=== PATIENT | female | born 1960 | race Caucasian/White ===

== ENCOUNTER 2017-06-21 11:02 | Emergency (ER) | payer OTHER ==
[~2017-06-21] VITALS: Ht 170.2 cm; Wt 108.0 kg
[2017-06-21 11:28] VITALS: TEMP 36.5; Ht 170.2 cm; Wt 108.0 kg
[2017-06-21] MEDS ORDERED: LEVO50TA6 PO (11:46)
[2017-06-21] MEDS ORDERED: METO50TA16 PO (11:46)
[2017-06-21] MEDS ORDERED: RIVA1TAB4 PO (11:46)
[2017-06-21] MEDS ORDERED: ATOR-24 PO (11:46)
[2017-06-21] MEDS ORDERED: ONDANSETRON INJ 2 MG/ML 2 ML VIAL IV STA (12:02)
[2017-06-21] MEDS ORDERED: SODIUM CHLORIDE 0.9% 1000ML 1,000 ML IV STA (12:02)
--- NOTE | 2017-06-21 12:06 | EMERGENCY ROOM VISIT NOTE ---
History Report prepared by Jeny: Lakia Stanford Under the Supervision of: Dr. Carlos Han D.O. First contact with patient: 11:52 Chief Complaint: DIZZY Stated Complaint: LIGHTHEADED/DIZZINESS Nursing Triage Summary: Patient states yesterday "I just did not feel right". Patient states yesterday she had a headache and dizziness. "I felt like my blood pressure was up". These symptoms worsened today. Patient presented to [facility] where BP was elevated and EMS was called. History of Present Illness The patient is a 57 year old female who presents to the Emergency Room with complaints of not feeling good for the past 48 hours. She has trouble explaining how she feels been noted she just does not feel right. She denies any dizziness which includes the room spinning or her feeling as though she is spinning. When she refers to dizziness she is expressing that she feels like she is going to pass out when she changes positions. She notes she has a mild left-sided head pressure which has been fairly constant. She has also felt lightheaded with changing positions mainly laying to standing or sitting to standing. Patient does have nausea associated with this. Her symptoms have worsened slightly today. She was seen at [facility] who is referred in via EMS for hypertension. She does have past medical history of hypertension, factor V Leiden and hypothyroid. She takes a Xa inhibitor and missed today's dose. No weakness or numbness in arms or legs. Denies any chest pain or shortness of breath. No change in vision. No fevers of of 100.4. Source of History: patient Onset: 48 hours ago Position: other (global) Quality: other (not feeling good) Timing: other (persistent) Associated Symptoms: + headache, + nausea Note: Pt reports like feeling out when changing positions. Pt denies room spinning. Review of Systems See HPI for pertinent positives & negatives. A total of 10 systems reviewed and were otherwise negative. Past Medical & Surgical Medical Problems: (1) Factor V Leiden (2) Hypertension (3) Hypothyroid Family History No pertinent family history stated. Social History Smoking Status: Never Smoker Marital Status: Occupation Status: employed Current/Historical Medications Scheduled Atorvastatin (Lipitor), 40 MG PO DAILY Levothyroxine Sodium (Levothyroxine Sodium), 2 TAB PO DAILY Metoprolol Tartrate (Lopressor) (Lopressor), 50 MG PO DAILY Rivaroxaban (Xarelto), 20 MG PO HS Allergies Coded Allergies: Penicillins (Unverified Allergy, Severe, HIVES, 06/21/17) Diphenhydramine (Verified Allergy, Unknown, reports "hives with IV Benadryl", 06/21/17) Levothyroxine (Verified Allergy, Unknown, reports "high BP with red and yellow dye" in Synthroid, 06/21/17) states she can only take the white 50mcg tablets Physical Exam Vital Signs Date Time Temp Pulse Resp B/P (MAP) Pulse Ox O2 Delivery O2 Flow Rate FiO2 06/21/17 13:26 77 18 130/76 97 Room Air 06/21/17 13:19 74 06/21/17 12:26 84 16 141/89 95 06/21/17 12:16 96 Room Air 06/21/17 12:16 96 Room Air 06/21/17 11:34 73 154/104 80 163/95 83 156/92 06/21/17 11:28 36.5 69 14 178/100 96 Room Air 06/21/17 11:15 67 Physical Exam GENERAL: Sitting up in bed, alert, well appearing, well nourished, no distress, non-toxic EYE EXAM: normal conjunctiva. PERRL and EOM's intact. OROPHARYNX: no exudate, no erythema, lips, buccal mucosa, and tongue normal and mucous membranes are moist NECK: supple, no nuchal rigidity, no adenopathy, non-tender LUNGS: Clear to auscultation. Normal chest wall mechanics HEART: no murmurs, S1 normal and S2 normal ABDOMEN: abdomen soft, non-tender, normo-active bowel sounds, no masses, no rebound or guarding. BACK: Back is symmetrical on inspection and there is no deformity, no midline tenderness, no CVA tenderness. SKIN: no rashes and no bruising UPPER EXTREMITIES: upper extremities are grossly normal. LOWER EXTREMITIES: No pitting edema. NEURO EXAM: Normal sensorium, cranial nerves II-XII intact, normal speech, no weakness of arms, no weakness of legs. No drift. Finger to nose intact. Gross sensation intact. Rapid alternating movements of upper extremities intact. Medical Decision & Procedures ER Provider Diagnostic Interpretation: Radiology results as stated below per my review and the radiologist's interpretation: CHEST ONE VIEW PORTABLE CLINICAL HISTORY: Weakness, dizziness. COMPARISON STUDY: No previous studies for comparison. FINDINGS: The heart is mildly enlarged. There is no failure. There are linear by basilar opacities likely atelectatic. There are no pleural effusions.[ IMPRESSION: Bibasilar subsegmental atelectatic change. Electronically signed by: Aryan Chisholm M.D. 06/21/2017 12:43 PM Dictated Date/Time: 06/21/2017 12:[address] HEAD WITHOUT CONTRAST (CT) CLINICAL HISTORY: Weakness, dizziness. COMPARISON STUDY: No previous studies for comparison. TECHNIQUE: Axial CT of the brain is performed from the vertex to the skull base. IV contrast was not administered for this examination. A dose lowering technique was utilized adhering to the principles of ALARA. CT DOSE: 669.45 mGycm FINDINGS: No intra or extra-axial mass lesions are visualized. There is no CT evidence of acute cortical infarction. There is no evidence of midline shift. There is no acute hemorrhage. No calvarial fractures are visualized. There are minimal white matter hypodensities likely on a small vessel basis. There is no evidence of pathologic ventricular dilatation. There is no evidence of acute sinusitis. Postsurgical changes involve the left mastoid. IMPRESSION: No acute intracranial findings Electronically signed by: Aryan Chisholm M.D. 06/21/2017 12:45 PM Dictated Date/Time: 06/21/2017 12:44 PM Laboratory Results 06/21/17 12:22 Red Blood Count 5.17, Mean Corpuscular Volume 94.4, Mean Corpuscular Hemoglobin 30.2, Mean Corpuscular Hemoglobin Concent 32.0, Mean Platelet Volume 10.7, Neutrophils (%) (Auto) 68.2, Lymphocytes (%) (Auto) 20.8, Monocytes (%) (Auto) 7.6, Eosinophils (%) (Auto) 2.4, Basophils (%) (Auto) 0.5, Neutrophils # (Auto) 5.32, Lymphocytes # (Auto) 1.62, Monocytes # (Auto) 0.59, Eosinophils # (Auto) 0.19, Basophils # (Auto) 0.04 06/21/17 12:22 Test 06/21/17 11:15 06/21/17 12:22 06/21/17 13:19 Urine Color YELLOW Urine Appearance CLEAR (CLEAR) Urine pH 6.5 (4.5-7.5) Urine Specific [place] 1.007 (1.000-1.030) Urine Protein NEG (NEG) Urine Glucose (UA) NEG (NEG) Urine Ketones NEG (NEG) Urine Occult Blood NEG (NEG) Urine Nitrite NEG (NEG) Urine Bilirubin NEG (NEG) Urine Urobilinogen NEG (NEG) Urine Leukocyte Esterase SMALL (NEG) Urine WBC (Auto) 1-5 /hpf (0-5) Urine RBC (Auto) 0-4 /hpf (0-4) Urine Hyaline Casts (Auto) 1-5 /lpf (0-5) Urine Epithelial Cells (Auto) >30 /lpf (0-5) Urine Bacteria (Auto) NEG (NEG) White Blood Count 7.80 K/uL (4.8-10.8) Red Blood Count 5.17 M/uL (4.2-5.4) Hemoglobin 15.6 g/dL (12.0-16.0) Hematocrit 48.8 % (37-47) Mean Corpuscular Volume 94.4 fL (80-100) Mean Corpuscular Hemoglobin 30.2 pg (25-34) Mean Corpuscular Hemoglobin Concent 32.0 g/dl (32-36) Platelet Count 252 K/uL (130-400) Mean Platelet Volume 10.7 fL (7.4-10.4) Neutrophils (%) (Auto) 68.2 % Lymphocytes (%) (Auto) 20.8 % Monocytes (%) (Auto) 7.6 % Eosinophils (%) (Auto) 2.4 % Basophils (%) (Auto) 0.5 % Neutrophils # (Auto) 5.32 K/uL (1.4-6.5) Lymphocytes # (Auto) 1.62 K/uL (1.2-3.4) Monocytes # (Auto) 0.59 K/uL (0.11-0.59) Eosinophils # (Auto) 0.19 K/uL (0-0.5) Basophils # (Auto) 0.04 K/uL (0-0.2) RDW Standard Deviation 55.0 fL (36.4-46.3) RDW Coefficient of Variation 16.0 % (11.5-14.5) Immature Granulocyte % (Auto) 0.5 % Immature Granulocyte # (Auto) 0.04 K/uL (0.00-0.02) Prothrombin Time 10.7 SECONDS (9.0-12.0) Prothromb Time International Ratio 1.0 (0.9-1.1) Activated Partial Thromboplast Time 31.0 SECONDS (21.0-31.0) Partial Thromboplastin Ratio 1.2 Anion Gap 6.0 mmol/L (3-11) Est Creatinine Clear Calc Drug Dose 67.5 ml/min Estimated GFR () 60.7 Estimated GFR (Non- 52.4 BUN/Creatinine Ratio 13.7 (10-20) Calcium Level 9.1 mg/dl (8.5-10.1) Total Bilirubin 0.5 mg/dl (0.2-1) Direct Bilirubin 0.1 mg/dl (0-0.2) Aspartate Amino Transf (AST/SGOT) 27 U/L (15-37) Alanine Aminotransferase (ALT/SGPT) 51 U/L (12-78) Alkaline Phosphatase 96 U/L (45-117) Troponin I < 0.015 ng/ml (0-0.045) Total Protein 7.5 gm/dl (6.4-8.2) Albumin 3.9 gm/dl (3.4-5.0) Thyroid Stimulating Hormone (TSH) 68.800 uIu/ml (0.300-4.500) Bedside Glucose 78 mg/dl (70-90) Laboratory results per my review. Medications Administered Medications (Trade) Dose Ordered Sig/Corbin Route Start Time Stop Time Status Last Admin Dose Admin Ondansetron HCl (Zofran Inj) 4 mg NOW STAT IV 06/21/17 12:02 06/21/17 12:03 DC 06/21/17 12:23 4 MG Sodium Chloride 1,000 ml @ 999 mls/hr Q1H1M STAT IV 06/21/17 12:02 06/21/17 13:03 DC 06/21/17 12:02 999 MLS/HR ECG Indication: other (dizziness) Rate (beats per minute): 69 Rhythm: sinus rhythm Findings: Q waves (Septal), other (normal axis) Comparison ECG Date: no prior available ED Course ED COURSE: Vital signs were reviewed and showed hypertension. The patients medical record was reviewed The above diagnostic studies were performed and reviewed. ED treatments and interventions as stated above. 1155: The patient was evaluated in room C10. A complete history and physical examination was performed. 1202: NSS 1000 ml @ 999 mls/hr IV, Zofran Inj 4 mg IV. 1311: Upon reevaluation, the patient is resting comfortably. I discussed my findings with the patient and she understands and agrees with the treatment plan. Based on the patients age, coexisting illnesses, exam and lab findings the decision to treat as an outpatient was made. The patient remained stable while under my care. The patient appeared well at the time of discharge. Medical Decision Differenital diagnosis includes etiologies such as benign positional vertigo, dehydration, hypovolemia, anemia, tumor, infection, hypoglycemia, electrolyte abnormalities, cardiac sources, intracerebral event, toxicologic, neurologic, as well as others were entertained. Patient is a 57-year-old female who presents to ER for not feeling good. She has difficulty expressing how she is feeling. She does note that she becomes lightheaded with changing positions. Has mild left-sided head pressure. Patient is completely neurologically intact. CT head was negative. She missed today's dose of her Xa inhibitor and I do not believe that this is a clot. She was slightly hypoglycemic. The question if this is secondary to poor by mouth intake. TSH was elevated as she has been mistakenly taken only 50 g of Synthroid instead of 100 per MAR which she supposed be taking. Hypoglycemia could be related to hypothyroidism however she does not have any other symptoms to go along with this. Did recommend increasing her dose of following up with PCP in 24 hours. Any worsening of her symptoms she should return to the ER. Discussed with Pt concerning signs and symptoms to watch out for. Pt was instructed to follow up with their PCP and discussed with the patient their option to return to the ED at anytime for persistent or worsening symptoms. The appropriate anticipatory guidance and out-patient management, including indications for return to the emergency department, were explained at length to the patient and understood. Medication Reconcilliation Current Medication List: was personally reviewed by me Blood Pressure Screening Patient's blood pressure: Elevated blood pressure Blood pressure disposition: Referred to PCP Impression Primary Impression: Weakness Additional Impressions: Hypoglycemia Hypothyroid Scribe Attestation The scribe's documentation has been prepared under my direction and personally reviewed by me in its entirety. I confirm that the note above accurately reflects all work, treatment, procedures, and medical decision making performed by me. Departure Information Dispostion Home / Self-Care Referrals No Doctor, Assigned Forms HOME CARE DOCUMENTATION FORM, IMPORTANT VISIT INFORMATION Patient Instructions ED Weakness Deena CALVO [facility] Additional Instructions Please follow up with your primary care doctor or if you are a student, [facility] with in the next 24 hours. Any worsening of your symptoms, please return to the ED immediately. This includes any fevers greater than 100.4, worsening pain, chest pain, shortness breath, persistent nausea, vomiting, unable to eat or drink, or any other concerning signs or symptoms from your standpoint. You were found to have a blood pressure greater than 120 systolic over 90 diastolic. Due to the new Medicare guidelines, we are now recommending that you follow up with your primary care doctor in regards to this elevated blood pressure. Please restart your Xa inhibitor today. Please discuss with her primary care doctor your TSH level of 68 and possibly increasing your thyroid medication. Problem Qualifiers Additional Impressions: Hypothyroid Hypothyroidism type: unspecified Qualified Codes: E03.9 - Hypothyroidism, unspecified
[2017-06-21 12:16] VITALS: O2SAT 96
[2017-06-21 12:30] LABS: BASO % 0.5 %; BASO ABS # 0.04 K/uL (0-0.2); COMPLETE YES; EOS % 2.4 %; HEMATOCRIT 48.8 % (37-47); IG% 0.5 %; LYMPH % 20.8 %; LYMPH ABS # 1.62 K/uL (1.2-3.4); MEAN CELL VOLUME 94.4 fL (80-100); MEAN CORPUSCULAR HEMOGLOBIN 30.2 pg (25-34); MEAN PLATELET VOLUME 10.7 fL (7.4-10.4); MONO % 7.6 %; NEUT % 68.2 %; PLATELET COUNT 252 K/uL (130-400); RED BLOOD COUNT 5.17 M/uL (4.2-5.4)
[2017-06-21 12:37] LABS: URINE APPEARANCE CLEAR (CLEAR); URINE BILIRUBIN NEG (NEG); URINE COLOR YELLOW; URINE EPITHELIAL CELL AUTO >30 /lpf (0-5); URINE NITRITE NEG (NEG); URINE PH 6.5 (4.5-7.5); URINE SPECIFIC GRAVITY 1.007 (1.000-1.030); UROBILINOGEN NEG (NEG)
[2017-06-21 12:43] LABS: PARTIAL THROMBOPLASTIN RATIO 1.2; PROTHROMBIN TIME (PATIENT) 10.7 SECONDS (9.0-12.0)
--- NOTE | 2017-06-21 12:45 | DIAGNOSTIC IMAGING REPORT ---
CHEST ONE VIEW PORTABLE CLINICAL HISTORY: Weakness, dizziness. COMPARISON STUDY: No previous studies for comparison. FINDINGS: The heart is mildly enlarged. There is no failure. There are linear by basilar opacities likely atelectatic. There are no pleural effusions.[ IMPRESSION: Bibasilar subsegmental atelectatic change. Electronically signed by: Aryan Chisholm M.D. 06/21/2017 12:43 PM Dictated Date/Time: 06/21/2017 12:43 PM
[2017-06-21 12:46] LABS: MANUAL MICROSCOPIC REQUIRED? NO; REVIEW REQ? NO
--- NOTE | 2017-06-21 12:46 | DIAGNOSTIC IMAGING REPORT ---
CT HEAD WITHOUT CONTRAST (CT) CLINICAL HISTORY: Weakness, dizziness. COMPARISON STUDY: No previous studies for comparison. TECHNIQUE: Axial CT of the brain is performed from the vertex to the skull base. IV contrast was not administered for this examination. A dose lowering technique was utilized adhering to the principles of ALARA. CT DOSE: 669.45 mGycm FINDINGS: No intra or extra-axial mass lesions are visualized. There is no CT evidence of acute cortical infarction. There is no evidence of midline shift. There is no acute hemorrhage. No calvarial fractures are visualized. There are minimal white matter hypodensities likely on a small vessel basis. There is no evidence of pathologic ventricular dilatation. There is no evidence of acute sinusitis. Postsurgical changes involve the left mastoid. IMPRESSION: No acute intracranial findings Electronically signed by: Aryan Chisholm M.D. 06/21/2017 12:45 PM Dictated Date/Time: 06/21/2017 12:44 PM
[2017-06-21 12:49] LABS: ALT/SGPT 51 U/L (12-78); BLOOD UREA NITROGEN 16 mg/dl (7-18); BUN/CREATININE RATIO 13.7 (10-20); CALCIUM 9.1 mg/dl (8.5-10.1); CARBON DIOXIDE 29 mmol/L (21-32); CHLORIDE 106 mmol/L (98-107); CREATININE 1.15 mg/dl (0.60-1.20); GLUCOSE 86 mg/dl (70-99); POTASSIUM 4.3 mmol/L (3.5-5.1); SODIUM 140 mmol/L (136-145)
[2017-06-21 12:59] LABS: ALKALINE PHOSPHATASE 96 U/L (45-117); AST/SGOT 27 U/L (15-37)
[2017-06-21 13:26] VITALS: BP 130/76; PULSE 77; O2SAT 97
== END 2017-06-21 13:31 | disposition home or self-care (01) ==
LOC: EDBD 11:02 → C.EDC 11:03
DX: R53.1 Weakness (principal); E16.2 Hypoglycemia, unspecified; E03.9 Hypothyroidism, unspecified; I10 Essential (primary) hypertension